=== PATIENT | female | born 1975 | race Asian ===

== ENCOUNTER → 2019-08-02 | Day surgery (SDC) | payer BC, OTHER ==
--- NOTE | 2019-08-04 14:13 | OP ---
DATE OF OPERATION: 08/02/2019 PREOPERATIVE DIAGNOSIS: Left breast mass, 1 o'clock, 6 cm from the nipple. POSTOPERATIVE DIAGNOSIS: Left breast mass, 1 o'clock, 6 cm from the nipple. PROCEDURE: Left ultrasound-guided core biopsy of clip placement. ANESTHESIA: Local. ATTENDING SURGEON: Brina Oquendo MD ESTIMATED BLOOD LOSS: Minimal. COMPLICATIONS: None. PROCEDURE: Patient was made aware of the risks and benefits of the procedure and consented. She was placed in a supine position. Under sterile conditions, with 2% lidocaine for local anesthesia, a small woody was made in the skin. Using a 13-gauge suction biopsy device via lateral approach under ultrasound guidance, multiple cores were obtained and submitted to Pathology. Likewise under ultrasound guidance, a bowtie clip was placed into the biopsy region. Well tolerated by patient. Steri-Strip and a sterile bandage was applied. Will contact her with results. BRINA OQUENDO M.D. [id number]
--- NOTE | 2019-08-07 10:06 | PATH ---
Surgical Pathology Report Patient Name: LEROY PLATA [facility]. Rec. #: [id number] /Age/Gender: 1975 (Age: 43) / F Account: [id number] Location: [facility] AMBULATORY Taken: 08/02/2019 Received: 08/03/2019 Reported: 08/07/2019 Physicians: Brina Oquendo M.D. Specimen(s) Received BREAST CORE BIOPSY 1N6 Clinical History Nonpalpable lesion Ultrasound findings: Highly suspicious/malignant Final Diagnosis BREAST, LEFT, 1N6; CORE BIOPSY: FIBROADENOMA. SEE COMMENT. Comment: Histologic sections show a fibroadenoma involved by fibrocystic changes and sclerosing adenosis. Immunohistochemical stains performed and interpreted at [facility] show retained myoepithelial cells (p63 and SMM-HC) within the sclerosing adenosis. Positive and negative controls (internal if applicable) show appropriate results. Electronically Signed Madison Underwood M.D. Gross Description Received in formalin labeled "left breast core biopsy 1N6" are 7 morton-yellow, cylindrical portions of fibroadipose tissue ranging from 0.5-1.2 cm in length and averaging 0.2 cm diameter. The specimens are submitted in toto in one cassette. Time to formalin fixation: <1 minute Total formalin fixation time: Between 74-75 hours. MLSZ/08/05/2019 ansley/08/05/2019
== END | disposition home or self-care (01) ==
LOC: FRADUS-SUR 15:05
PROVIDERS: ATTEND Surgery Surgical Oncology
PROC: 0HBU3ZX Excision of Left Breast, Percutaneous Approach, Diagnostic (ICD-10-PCS; principal; 2019-08-02)
DX: D24.2 Benign neoplasm of left breast (principal); N63.21 Unspecified lump in the left breast, upper outer quadrant
CPT/HCPCS: 19083; 87899; 88305-TC; 88341-TC; 88342-TC; A4648